=== PATIENT | male | born 1960 | race Caucasian/White ===

== ENCOUNTER 2017-11-20 14:52 | Inpatient (IN) ==
[2017-11-20] MEDS ORDERED: Naloxone Inj 0.4 MG/ML Vial IV.PUSH PRN (15:30)
[2017-11-20] MEDS ORDERED: fentaNYL 10 mcg/mL Premix Drip 2,500 MCG/250 ML BAG IV.SIG PRN (16:15)
[2017-11-20] MEDS ORDERED: Pantoprazole Inj 40 MG Vial IV.PUSH SCH (17:00)
[2017-11-20] MEDS ORDERED: NOREPINEPHRINE IV.SIG PRN (17:15)
[2017-11-20] MEDS ORDERED: SODIUM CHLOR 0.9% IV.SIG PRN (17:15)
[2017-11-20] MEDS ORDERED: Vasopressin Inj 40 UNIT in Sodium Chlor 0.9% Inj 98 ML IV.SIG PRN (18:15)
[2017-11-20] MEDS ORDERED: Midazolam 50 MG/50 ML Inj 50 MG/50 ML BAG IV.CONT PRN (19:45)
[2017-11-21] MEDS ORDERED: Potassium Chlor 20 mEq Premix 20 MEQ/100 ML PIGGYBACK IV.SIG PRN ×2 (06:45)
[2017-11-21] MEDS ORDERED: Sodium Phosphate Inj 30 MMOL in Sodium Chlor 0.9% Inj 240 ML IV.SIG PRN ×4 (06:45)
[2017-11-21] MEDS ORDERED: Potassium Phosphate Inj 30 MMOL in Sodium Chlor 0.9% Inj 250 ML IV.SIG PRN ×4 (06:45)
[2017-11-21] MEDS ORDERED: Magnesium Sulfate Inj 2 GM in Sodium Chlor 0.9% Inj 96 ML IV.SIG PRN (06:45)
[2017-11-21] MEDS ORDERED: Magnesium Sulfate Inj 4 GM in Sodium Chlor 0.9% Inj 92 ML IV.SIG PRN (06:45)
[2017-11-21] MEDS ORDERED: Magnesium Oxide 400 MG Tablet PO PRN (06:45)
[2017-11-21] MEDS ORDERED: Magnesium Sulfate Inj 4 GM in Sodium Chlor 0.9% Inj 100 ML IV.SIG PRN (06:45)
[2017-11-21] MEDS ORDERED: Bisacodyl 10 MG Supp RECTAL PRN (06:45)
[2017-11-21] MEDS ORDERED: Potassium Chlor 40 mEq Premix 40 MEQ/100 ML PIGGYBACK IV.SIG PRN ×2 (06:45)
[2017-11-21] MEDS ORDERED: Potassium Phosphate 500 MG Soluble Tablet PO PRN ×4 (06:45)
[2017-11-21] MEDS ORDERED: Chlorhexidine 0.12% Oral Kit 15 ML UDC SWISH-SPIT SCH (08:00)
[2017-11-21] MEDS ORDERED: Senna/Docusate Sodium 8.6/50 MG Tablet PO SCH (09:00)
[2017-11-22] MEDS ORDERED: Sodium Chloride 0.45 % Inj 1,000 ML IV.CONT SCH (09:30)
[2017-11-22] MEDS ORDERED: Desmopressin Inj 4 MCG/ML Ampul SQ SCH (21:00)
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
== END 2017-11-23 15:00 | disposition expired ==
LOC: N03 11-23 01:50
PROVIDERS: ADMIT Surgery; ATTEND Surgery